=== PATIENT | male | born 1970 | race Caucasian/White ===

== ENCOUNTER → 2017-09-24 | Day surgery (SDC) | payer BC ==
[2017-09-16 15:40] VITALS: Ht 185.4 cm; Wt 118.2 kg
[~2017-09-24] VITALS: Ht 185.4 cm; Wt 118.2 kg
[~2017-09-24] MED LIST: ATROPINE SULFATE 0.1 MG/ML 5ML SYR IV PRN; CEFAZOLIN 2000MG IV PUSH 15 ML IV SCH; DEXAMETHASONE SOD INJ 4 MG/ML VIAL ONE; EpHEDrine SULFATE INJ 50 MG/ML AMP IV PRN; EpINEphrine INJ 1MG/ML AMP 1 MG/ML AMP ONE; FENTANYL CITRATE INJ 50 MCG/1 ML 2 ML VIAL IV PRN; FENTANYL CITRATE INJ 50 MCG/1 ML 2 ML VIAL ONE; FLUMAZENIL 0.1 MG/1 ML 10 ML VIAL IV PRN; HYDROmorphone INJ 2 MG/ML SYR/VIAL IV PRN; KETO10TA PO; KETOROLAC TROMETHAMINE 30 MG/ML VIAL ONE; LABETALOL HCL IV 5 MG/ML 20ML IV PRN; LACTATED RINGER'S 1000ML 1,000 ML IV SCH; LIDOCAINE HCL 2% 2 ML VIAL (20MG/ML) ONE; MEPERIDINE HCL 25 MG/ML CARP IV PRN; MIDAZOLAM HCL 1 MG/ML 2ML VIAL ONE; MULT-506 PO; NALOXONE HCL 0.4 MG/1 ML VIAL/CARP IV PRN; ONDANSETRON INJ 2 MG/ML 2 ML VIAL IV PRN; ONDANSETRON INJ 2 MG/ML 2 ML VIAL ONE; OXYC-57 PO; OXYCODONE/ACETAMINOPHEN 5-325 TAB PO PRN; PHENYLEPHRINE 100MCG/ML 5ML SYR IV PRN; PROPOFOL IV EMULSION 10 MG/ML 20 ML VIAL IV ONE; ROPIVACAINE 0.5% 5 MG/ML 30 ML VIAL ONE; SODIUM CHLORIDE 0.9% 1000ML 1,000 ML IV SCH
--- NOTE | 2017-09-24 09:17 | History & Physical Bridge - [place] ---
H&P Re-Evaluation Bridge Note: I have examined the patient, reviewed the History & Physical and in the interval since the performance of the History & Physical I have noted the following changes of clinical significance: No changes noted
--- NOTE | 2017-09-24 10:08 | [facility] Post Operative Brief Note ---
Immediate Operative Summary Operative Date Sep 24, 2017. Pre-Operative Diagnosis Torn Medical Meniscus Left Knee + DJD Post-Operative Diagnosis Same Procedure(s) Performed Left Knee Arthroscopy With Partial Medial Meniscectomy, Chondroplasty of MFC + PF Joint Surgeon Dr. Maldonado Window Assembler Surgeon(s) Farrukh Zavala PA-C Estimated Blood Loss 0ML Findings Consistent with Post-Op Diagnosis Specimens None Drains None Anesthesia Type General Disposition Accompanied Pt To Recovery: no Disposition: Recovery Room / PACU
--- NOTE | 2017-09-24 10:10 | Discharge Instructions-SurgCtr ---
Discharge Instructions Date of Service Sep 24, 2017. Visit Reason for Visit: Left Knee Medial Meniscus Tear Discharge Discharge Diagnosis / Problem: left knee pain, medial meniscus tear Discharge Goals Goal(s): Decrease discomfort, Therapeutic intervention Activity Recommendations Activity Limitations: per Instructions/Follow-up section Anesthesia . Post Anesthesia Instructions: If you have had General Anesthesia or IV Sedation: * Do not drive today. * Resume driving when surgeon permits. * Do not make important decisions or sign legal documents today. * Call surgeon for: 1. Temperature elevations greater than 101 degrees F. 2. Uncontrollable pain. 3. Excessive bleeding. 4. Persistent nausea and vomiting. 5. Medication intolerance (nausea, vomiting or rash). * For nausea and vomiting use only clear liquids such as: tea, soda, bouillon until nausea subsides, then gradually increase diet as tolerated. * If you have any concerns or questions, call your surgeon's office. If physician is unavailable and it is an emergency, call 911 or go to the nearest emergency room. . Instructions / Follow-Up Instructions / Follow-Up MEDICATIONS: * Resume previous medications unless instructed otherwise by your surgeon. * Always take pain medication on a full stomach or with food to avoid upset stomach. * Do not drink alcohol or drive while taking narcotics. * Ibuprofen or Tylenol may be taken if narcotic not needed. No ibuprofen while taking toradol SPECIAL CARE INSTRUCTIONS: __ None _x_ Keep extremity elevated and iced x 48 hours; apply ice 20-30 minutes 8-10 times/day. May remove at night. __ Crutches __ May discard when able __ Brace/Post-op shoe __ 24 hrs/day __ Remove at night _x_ Dressing __ Maintain until seen in office, may shower with plastic over site x__ Remove dressings in 24-48 hours and then may shower x__ Cover incisions with band-aids after showering __ Do not remove steri-strips Call physician if chills or temperature rises above 102 degrees or pain unrelieved by prescribed pain medications. Office [phone] follow up in 2 weeks Diet Recommendations Home Diet: resume previous diet Procedures Procedures Performed: Left Knee Arthroscopy With Partial Medial Meniscectomy, Chondroplasty of MFC + PF Joint Pending Studies Studies pending at discharge: no Medical Emergencies . Who to Call and When: Medical Emergencies: If at any time you feel your situation is an emergency, please call 911 immediately. . Non-Emergent Contact Non-Emergency issues call your: Surgeon . . "Provider Documentation" section prepared by Arturo Zavala. .
--- NOTE | 2017-09-24 10:28 | OPERATIVE REPORT ---
DATE OF OPERATION: 09/24/2017 SURGEON: Dar Maldonado MD. MANAGER OFFICE: [facility]. PREOPERATIVE DIAGNOSES: 1. Left knee degenerative medial meniscus tear. 2. Left knee degenerative joint disease. POSTOPERATIVE DIAGNOSES: 1. Left knee degenerative medial meniscus tear. 2. Left knee degenerative joint disease with some focal grade 3-4 changes in medial femoral condyle and grade 3 and 4 changes of the patellofemoral joint, most severe in the trochlea. PROCEDURE PERFORMED: 1. Left knee exam under anesthesia. 2. Left knee diagnostic arthroscopy. 3. Left knee arthroscopic partial medial meniscectomy. 4. Left knee chondroplasty medial femoral condyle. 5. Left knee chondroplasty of the patellofemoral joint. COMPLICATIONS: None. ESTIMATED BLOOD LOSS: Minimal. TOURNIQUET TIME: 22 minutes at 300 mmHg. ANESTHESIA: General. SPECIMENS: None. 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 He dates to starting after a run. We saw him in clinic and treated him conservatively with oral medicines and injection. It provided some temporary relief only. He continues to be bothered and limited by his pain. An MRI suggested medial meniscus tear as well as some particular patellofemoral chondrosis. The patient elected to proceed with operative treatment. Of note, he had a similar findings on his right knee 2-1/2 years ago and did pretty well with surgery. OPERATIVE FINDINGS: Examination under anesthesia of the left knee revealed just trace knee effusion. Range of motion is 0-135. No instability. Adelia's is negative for mechanical symptoms. ARTHROSCOPIC FINDINGS: Arthroscopic findings revealed just a trace knee effusion. He did have some grade 2 changes of the patella and pretty extensive grade 3 and 4 changes of the trochlea. In the intercondylar notch, the ACL and PCL were intact. In the medial compartment, he did have a complex degenerative tear of the posterior horn of the medial meniscus with a significant radial component. He also has very small focal grade 3 and 4 changes of the medial femoral condyle. In the lateral compartment, there was some inner fraying of the rim of the lateral meniscus. Some age-related changes to the cartilage. OPERATIVE PROCEDURE: The patient was taken to the operating room, identified and placed on the operating table in supine position. All contact areas were appropriately padded. IV antibiotics were provided by anesthesia team. A general anesthetic was implemented by anesthesia team. Left thigh tourniquet was then placed. Left lower extremity was then examined under anesthesia and then prepped and draped in the usual sterile fashion. Left leg was elevated and exsanguinated with an Esmarch and tourniquet placed at 300 mmHg. Routine left knee arthroscopy was then performed through anteromedial and anterolateral portals. A supralateral portal was established for outflow. Attention was first drawn to the medial meniscus. With the use of motorized and a hand controlled instrument, a partial medial meniscectomy was then performed. He did have a significant radial component to this tear and we had to do saucerize that out almost back to the capsular junction in that area. Once this was complete, the shaver was then used to debride some loose cartilage at the end of the medial femoral condyle. There was one area where there was pretty deep cartilage wear down to bone. Attention was then drawn to the lateral compartment. I did use the shaver just to trim up the inner rim tearing of the lateral meniscus. Attention was then drawn to the patellofemoral joint. With the use of the shaver, the loose cartilage at the undersurface of patella as well as the trochlea was then debrided back to stable tissue. Once this was complete, the arthroscopic instrument was then placed throughout the knee joint. All extraneous debris was removed. The arthroscopic instruments were then removed from the joint and the portals were closed with 3-0 Prolene suture in a simple fashion. The leg was then cleaned and dried. The knee was then injected with 30 mL of combination of 0.5% ropivacaine with epinephrine and 30 mg of Toradol. Sterile dressing with Xeroform, 4 x 4s, sterile cast padding and Lorenzo bandage were applied. The tourniquet was then let down for a final tourniquet time of 22 minutes. The patient was then brought out of general anesthesia and transferred to the recovery room in stable condition. The patient tolerated the procedure well with no complication. All needle and sponge counts were correct at the end of the operation. I attest to the content of the Intraoperative Record and any orders documented therein. Any exception s are noted below.
--- NOTE | 2017-09-24 10:37 | Anesthesia Progress Nt - [facility] ---
Anesthesia Post Op Note Date & Time Sep 24, 2017 at 10:37 Vital Signs Pain Intensity: 3 Vital Signs Past 12 Hours Date Time Temp Pulse Resp B/P (MAP) Pulse Ox O2 Delivery O2 Flow Rate FiO2 09/24/17 10:32 63 13 09/24/17 10:32 65 13 94 09/24/17 10:31 130/80 09/24/17 10:27 69 15 98 09/24/17 10:27 69 15 09/24/17 10:26 128/79 09/24/17 10:24 70 20 98 09/24/17 10:24 69 20 09/24/17 10:21 126/76 09/24/17 10:19 68 18 09/24/17 10:19 68 18 98 09/24/17 10:16 129/73 09/24/17 10:15 126/82 09/24/17 10:14 36.7 66 16 126/82 98 Mask 7 09/24/17 07:46 36.6 69 16 131/92 (105) 96 Room Air Notes Mental Status: alert / awake / arousable, participated in evaluation Pt Amnestic to Procedure: Yes Nausea / Vomiting: adequately controlled Pain: adequately controlled Airway Patency, RR, SpO2: stable & adequate BP & HR: stable & adequate Hydration State: stable & adequate Anesthetic Complications: no major complications apparent
[2017-09-24 10:49] VITALS: TEMP 36.2
[2017-09-24 11:09] VITALS: BP 128/78; PULSE 60; O2SAT 98
== END | disposition home or self-care (01) ==
LOC: X.SURG 07:37
PROVIDERS: ATTEND Orthopaedic Surgery Sports Medicine
DX: S83.242A Other tear of medial meniscus, current injury, left knee, initial encounter (principal); X58.XXXA Exposure to other specified factors, initial encounter; Y93.02 Activity, running; M17.12 Unilateral primary osteoarthritis, left knee